=== PATIENT | male | born 1980 ===

== ENCOUNTER 2021-07-30 03:08 | Emergency (ER) | payer SELFPAY ==
[2021-07-30] MEDS ORDERED: Octyl 2-Cyanoacrylate 1 APPLIC TUBE TOP ONE (04:36)
[2021-07-30] MEDS ORDERED: Octyl 2-Cyanoacrylate 1 APPLIC TUBE ONE (04:37)
== END 2021-07-30 04:51 | disposition home or self-care (01) ==
LOC: MW.ED 03:08
DX: S00.81XA Abrasion of other part of head, initial encounter (principal); Y04.0XXA Assault by unarmed brawl or fight, initial encounter
CPT/HCPCS: 70450; 70450-26; 70486; 70486-26; 72125; 72125-26; 99284-25